=== PATIENT | female | born 1985 | race Caucasian/White ===

== ENCOUNTER 2020-04-02 14:35 | Emergency (ER) | payer MEDICAID ==
[~2020-04-02] VITALS: Ht 160 cm; Wt 77.1 kg
[2020-04-02 14:36] VITALS: BP 134/79
--- NOTE | 2020-04-02 14:52 | NUR ---
34 Y/O FEMALE S/O TOOTHACHE X2 WEEKS, CAUSING RIGHT SIDED FACIAL PAIN. SWELLING AND ERYTHEMA NOTED, NO DRAINAGE OR BLEEDING NOTED. PATIENT MISSING MULTIPLE TEETH AND DENIES EVER GETTING DENTAL CARE. PATIENT DENIES ANY FOUL TASTE IN MOUTH, OR ODOR. PT STATES SHE HAS BEEN TAKING XXTRA STRENGTH EXCEDRIN, DUE TO PAIN 10/10 ON RIGHT SIDE OF FACE.
--- NOTE | 2020-04-02 15:15 | NUR ---
PATIENT STATES SHE IS APPROX 7 WEEKS
[2020-04-02] MEDS ORDERED: IBUPROFEN 800 MG TAB PO ONE (15:45)
[2020-04-02] MEDS ORDERED: AMOXICILLIN 500 MG CAP PO ONE (15:45)
[2020-04-02 16:45] VITALS: BP 131/76
--- NOTE | 2020-04-02 16:46 | NUR ---
Patient discharged with v/s stable. Written and verbal after care instructions given and explained. Patient alert, oriented and verbalized understanding of instructions. Ambulatory with steady gait. All questions addressed prior to discharge. ID band removed. Patient advised to follow up with PMD. Rx of amoxicillin & motrin given. Patient educated on indication of medication including possible reaction and side effects. Opportunity to ask questions provided and answered.
== END 2020-04-02 16:46 | disposition home or self-care (01) ==
LOC: MED 14:35
DX: O99.611 Diseases of the digestive system complicating pregnancy, first trimester (principal); K04.7 Periapical abscess without sinus; Z3A.01 Less than 8 weeks gestation of pregnancy; Z98.890 Other specified postprocedural states
CPT/HCPCS: 36415; 76801; 86901; 99284; Q0092

== ENCOUNTER 2020-11-13 01:43 | Emergency (ER) | payer MEDICAID ==
[~2020-11-13] VITALS: Ht 160 cm; Wt 77.1 kg
[2020-11-13 01:45] VITALS: BP 138/82
--- NOTE | 2020-11-13 01:45 | NUR ---
to bed ambulatory
[2020-11-13] MEDS ORDERED: cefTRIAXone 1,000 MG in DEXT 5% MINI-BAG PLUS 50 ML IV ONE (02:50)
[2020-11-13] MEDS ORDERED: ONDANSETRON 4 MG/2 ML VIAL IVP ONE (02:50)
[2020-11-13] MEDS ORDERED: NACL 0.9% 1,000 ML IV SCH (02:50)
[2020-11-13] MEDS ORDERED: MORPHINE SULFATE 4 MG/ML SYR IVP ONE (02:50)
--- NOTE | 2020-11-13 03:05 | NUR ---
pt repeatedly states " I do not want to be here anymore, I would rather just wait for the doctor." pt notified of possible risks if eloping. Dr. Koo made aware.
--- NOTE | 2020-11-13 03:13 | NUR ---
PATIENT ELOPED FROM FACILITY. DISCHARGE INSTRUCTIONS NOT GIVEN TO PATIENT. NOTIFIED.
== END 2020-11-13 03:13 | disposition left against medical advice (07) ==
LOC: MED 01:43
DX: R10.2 Pelvic and perineal pain (principal); Z53.21 Procedure and treatment not carried out due to patient leaving prior to being seen by health care provider
CPT/HCPCS: J7030

== ENCOUNTER 2021-09-04 09:21 | Emergency (ER) | payer MEDICAID ==
[~2021-09-04] VITALS: Ht 162.6 cm; Wt 85.7 kg
[2021-09-04 09:23] VITALS: BP 149/91
[2021-09-04] MEDS ORDERED: KETOROLAC 60 MG/2 ML VIAL IM ONE (09:40)
--- NOTE | 2021-09-04 09:53 | NUR ---
PT C/O MOUTH AND TOOTH PAIN X2 DAYS. UNABLE TO SEE DENTIST AT THIS TIME.
[2021-09-04] MEDS ORDERED: MORPHINE SULFATE 4 MG/ML SYR IM ONE (10:05)
[2021-09-04] MEDS ORDERED: PENI-319 PO (10:11)
[2021-09-04] MEDS ORDERED: ACET-8386 PO (10:11)
[2021-09-04] MEDS ORDERED: IBUP-2213 PO (10:11)
[2021-09-04 10:28] VITALS: BP 124/80
--- NOTE | 2021-09-04 10:29 | NUR ---
Patient discharged with v/s stable. Written and verbal after care instructions given and explained. Patient alert, oriented and verbalized understanding of instructions. Ambulatory with steady gait. All questions addressed prior to discharge. ID band removed. Patient advised to follow up with PMD. Rx of NORCO, PCN given. Patient educated on indication of medication including possible reaction and side effects. Opportunity to ask questions provided and answered.
== END 2021-09-04 10:29 | disposition home or self-care (01) ==
LOC: MED 09:21
DX: K08.89 Other specified disorders of teeth and supporting structures (principal); R50.9 Fever, unspecified; R68.83 Chills (without fever); F17.200 Nicotine dependence, unspecified, uncomplicated; Z79.899 Other long term (current) drug therapy
CPT/HCPCS: 96372; 99284; J1885; J2270

== ENCOUNTER 2021-10-10 10:58 | Emergency (ER) | payer MEDICAID ==
[~2021-10-10] VITALS: Ht 160 cm; Wt 83.9 kg
[~2021-10-10 10:58] MED LIST: ACET-8386 PO; IBUP-2213 PO; PENI-319 PO
[2021-10-10 11:32] VITALS: BP 131/50
--- NOTE | 2021-10-10 11:36 | NUR ---
36/F BIB SELF WITH C/O TOOTHACHE, STATES SHE WAS SEEN BY A DENTIST BUT WAS TOLD NO WORK CAN BE DONE WITH AN ACTIVE INFECTION. STATES BEING SEEN TWO MONTHS AGO FOR SAME THING, DENIES FEVERS/CHILLS, DENIES TAKING MEDS FOR PAIN.
[2021-10-10] MEDS ORDERED: PENI500T20 PO (12:15)
[2021-10-10] MEDS ORDERED: NAPR-1704 PO (12:15)
[2021-10-10 12:23] VITALS: BP 131/50
--- NOTE | 2021-10-10 12:23 | NUR ---
Patient discharged with v/s stable. Written and verbal after care instructions given and explained. Patient alert, oriented and verbalized understanding of instructions. Ambulatory with steady gait. All questions addressed prior to discharge. ID band removed. Patient advised to follow up with PMD. Rx of NAPROXEN & PENICILLIN given. Patient educated on indication of medication including possible reaction and side effects. Opportunity to ask questions provided and answered.
== END 2021-10-10 12:23 | disposition home or self-care (01) ==
LOC: MED 10:58
DX: K02.9 Dental caries, unspecified (principal); Z79.899 Other long term (current) drug therapy
CPT/HCPCS: 99283